=== PATIENT | female | born 1980 | race Caucasian/White ===

== ENCOUNTER 2018-06-03 13:19 | Emergency (ER) | payer MEDICAID ==
[~2018-06-03] VITALS: Ht 167.6 cm; Wt 107.5 kg
[2018-06-03 13:28] VITALS: BP 142/87
--- NOTE | 2018-06-03 13:39 | NUR ---
NICKIE HAN PERFORMING EKG IN TRIAGE AT THIS TIME.
--- NOTE | 2018-06-03 14:04 | NUR ---
Kerline ramirez in ED - 06/03/18 at 1425 by [facility] PT TO ER BED 11 CARRIED BY MOTHER
--- NOTE | 2018-06-03 14:25 | NUR ---
PT TO ER BED 9
[2018-06-03 15:38] VITALS: BP 126/72
== END 2018-06-03 15:35 | disposition home or self-care (01) ==
LOC: MED 13:19
DX: F15.23 Other stimulant dependence with withdrawal (principal); F41.9 Anxiety disorder, unspecified; Z90.49 Acquired absence of other specified parts of digestive tract; Z88.6 Allergy status to analgesic agent; Z88.5 Allergy status to narcotic agent; Z88.8 Allergy status to other drugs, medicaments and biological substances
CPT/HCPCS: 93005; 99283

== ENCOUNTER 2018-08-01 07:52 | Emergency (ER) | payer MEDICAID ==
[~2018-08-01] VITALS: Ht 157.5 cm; Wt 108.9 kg
[2018-08-01 07:59] VITALS: BP 134/86
--- NOTE | 2018-08-01 08:04 | NUR ---
PT AMBULATED TO BED 3
--- NOTE | 2018-08-01 08:05 | NUR ---
C/O NON RADIATING RLQ PAIN 09/17, THROBBING & INTERMITTENT STARTING LAST NIGHT. LBM 08/01/18, REGULAR PER PT. DENIED N/V/D/FEVER. PT REPORTS TAKING TYLENOL BUT HAD NO RELIEF. PT REPORTS URINARY FREQUENCY BUT DENIES DYSURIA. ABDOMEN SOFT/FLAT/TENDER TO PALPATION ON LRQ. BOWEL SOUNDS ACTIVE X4. BED IN LOW POSITION, SIDE RAIL UP X1.
--- NOTE | 2018-08-01 08:15 | NUR ---
ERMD AT BEDSIDE
[2018-08-01] MEDS ORDERED: KETOROLAC 30 MG/ML VIAL IM ONE (08:50)
[2018-08-01 10:34] VITALS: BP 130/88
[2018-08-01] MEDS ORDERED: fentaNYL 0.05 MG/ML VIAL NS ONE (11:15)
--- NOTE | 2018-08-01 11:35 | NUR ---
Kerline ramirez in [facility] - 08/01/18 at 1144 by [facility] PT LEFT TO CT
--- NOTE | 2018-08-01 11:38 | NUR ---
PT TAKEN TO CT VIA WHEELCHAIR
--- NOTE | 2018-08-01 12:55 | NUR ---
Patient discharged with v/s stable. Written and verbal after care instructions given and explained. Patient alert, oriented and verbalized understanding of instructions. Ambulatory with steady gait. All questions addressed prior to discharge. ID band removed. Patient advised to follow up with PMD. Rx of NARCO AND NAPROSYN given. Patient educated on indication of medication including possible reaction and side effects. Opportunity to ask questions provided and answered.
== END 2018-08-01 12:55 | disposition home or self-care (01) ==
LOC: MED 07:52
DX: R10.2 Pelvic and perineal pain (principal); K21.9 Gastro-esophageal reflux disease without esophagitis; I10 Essential (primary) hypertension; Z88.6 Allergy status to analgesic agent; Z88.5 Allergy status to narcotic agent
CPT/HCPCS: 74176; 76856; 81002; 81025; 93976; 96372; 99284; J1885; J3010; Q0092

== ENCOUNTER 2018-11-11 05:02 | Emergency (ER) | payer MEDICAID ==
[~2018-11-11] VITALS: Ht 157.5 cm; Wt 107.0 kg
[2018-11-11 05:08] VITALS: BP 153/93
[2018-11-11 06:17] VITALS: BP 125/49
== END 2018-11-11 06:16 | disposition home or self-care (01) ==
LOC: MED 05:02
DX: F41.9 Anxiety disorder, unspecified (principal); F32.9 Major depressive disorder, single episode, unspecified; I10 Essential (primary) hypertension; K21.9 Gastro-esophageal reflux disease without esophagitis; E11.9 Type 2 diabetes mellitus without complications; Z88.6 Allergy status to analgesic agent; Z87.42 Personal history of other diseases of the female genital tract
CPT/HCPCS: 93005; 99283

== ENCOUNTER 2019-04-25 12:26 | Emergency (ER) | payer MEDICAID ==
[~2019-04-25] VITALS: Ht 157.5 cm; Wt 107.5 kg
[2019-04-25 12:31] VITALS: BP 159/86
--- NOTE | 2019-04-25 12:32 | NUR ---
Patient ambulated to bed 5. RN evaluating patient at bedside.
--- NOTE | 2019-04-25 12:46 | NUR ---
Dr. Srivastava is evaluating the patient at bedside.
[2019-04-25] MEDS ORDERED: hydrOXYzine HCL 25 MG TAB PO ONE (12:50)
--- NOTE | 2019-04-25 12:50 | NUR ---
DR AMBRIZ EVALUATING PT AT BEDSIDE
--- NOTE | 2019-04-25 12:54 | NUR ---
states anxiety d/t "coronavirus"
--- NOTE | 2019-04-25 12:54 | NUR ---
38/F C/O feeling of anxiety and CP/palpitations last night that lasted 10 min. Took pill of Clonazepam and symptoms resolved. This morning pt woke up at 10am, with CP lasting minutes along with palpitations and SOB. Denies n/v, diaphoresis. Sternal chest pain, nonradiating. Chest pain constant, sharp. But states symptoms have decreased since checking into ER with "deep breathing". EKG done already. AOX4. VSS. Hx- Anxiety, HTN, pre-DM, ovarian cyst
[2019-04-25 13:46] LABS: BASOPHILS # (AUTO) 0.1 K/uL (0.00-0.22); BASOPHILS % (AUTO) 0.8 % (0.0-2.0); EOSINOPHILS # (AUTO) 0.1 K/uL (0-0.4); HEMATOCRIT 40.2 % (36-48); HEMOGLOBIN 13.4 g/dL (12.0-16.0); LYMPHOCYTES # (AUTO) 2.7 K/uL (2.5-16.5); LYMPHOCYTES % (AUTO) 35.8 % (20.5-51.1); MEAN CORPUSCULAR HEMOGLOBIN 29 pg (27-31); MEAN CORPUSCULAR HGB CONC 33 g/dL (33-37); MEAN CORPUSCULAR VOLUME 88.3 fL (80-94); MONOCYTES # (AUTO) 0.5 K/uL (0.8-1.0); MONOCYTES % (AUTO) 6.6 % (1.7-9.3); NEUTROPHILS # (AUTO) 4.2 K/uL (1.8-7.7); NEUTROPHILS % (AUTO) 55.8 % (42.2-75.2); PLATELET COUNT (AUTO) 239 K/uL (140-450); RED BLOOD CELL COUNT(AUTO) 4.56 MIL/uL (4.20-5.40); WHITE BLOOD COUNT (AUTO) 7.6 K/uL (4.8-10.8)
[2019-04-25 14:19] LABS: ANION GAP 15.1 (8-16); CARBON DIOXIDE 24.7 mmol/L (21-32); POTASSIUM 3.8 mmol/L (3.5-5.1)
[2019-04-25 14:25] LABS: ALBUMIN 3.4 g/dL (3.4-5.0); TOTAL BILIRUBIN 0.3 mg/dL (0.0-1.0)
--- NOTE | 2019-04-25 14:51 | NUR ---
Patient discharged with v/s stable. Written and verbal after care instructions given and explained. Patient alert, oriented and verbalized understanding of instructions. Ambulatory with steady gait. All questions addressed prior to discharge. ID band removed. Patient advised to follow up with PMD. Rx of HYDROXYZINE given. Patient educated on indication of medication including possible reaction and side effects. Opportunity to ask questions provided and answered.
[2019-04-25 15:11] VITALS: BP 127/88
== END 2019-04-25 14:51 | disposition home or self-care (01) ==
LOC: MED 12:26
DX: F41.9 Anxiety disorder, unspecified (principal); E11.9 Type 2 diabetes mellitus without complications; K21.9 Gastro-esophageal reflux disease without esophagitis; I10 Essential (primary) hypertension; Z88.1 Allergy status to other antibiotic agents; Z88.5 Allergy status to narcotic agent
CPT/HCPCS: 36415; 71045; 80053; 84484; 85025; 93005; 99285; Q0092

== ENCOUNTER 2021-01-20 07:53 | Emergency (ER) | payer MEDICAID ==
[~2021-01-20] VITALS: Ht 157.5 cm; Wt 118.8 kg
[2021-01-20 07:58] VITALS: BP 183/102
--- NOTE | 2021-01-20 08:05 | NUR ---
pt ambulated to bed 11
--- NOTE | 2021-01-20 08:09 | NUR ---
pt in bathroom for urine specimen
--- NOTE | 2021-01-20 08:14 | NUR ---
40 y/o f bib self from home, c/o back pain, increased frequency to urinate and dysuria for 1 week. denies hemturia, n/v/d. skin is pink/warm/dry; aaox4 with even and steady gait. lungs clear bl; hr even and regular; pt denies any fever, cough, sob, or cp at this time; pt states pain of 8/10 at this time; ermd made aware of pt status. bilateral cva tenderness. bowel sounds x4, normoactive, soft/non-tender/flat. pmh: htn, anxiety med: lisinopril (has not taken this morning) allergy: hydrocodone ("makes me breathe slow")
[2021-01-20 08:32] LABS: APPEARANCE,URINE CLOUDY (CLEAR); BILIRUBIN,URINE NEGATIVE (NEGATIVE); BLOOD, URINE 3+ (NEGATIVE); COLOR,URINE YELLOW (YELLOW); LEUKOCYTE ESTERASE ,URINE 2+ (NEGATIVE); NITRITE, URINE POSITIVE (NEGATIVE); UGLUCOSE NEGATIVE (NEGATIVE)
[2021-01-20 08:49] LABS: RBC,URINE 11-20 (MOD) /HPF (0-5)
[2021-01-20 08:50] LABS: WBC,URINE 80-100 /HPF (0-5)
[2021-01-20] MEDS ORDERED: PYR100 PO (09:18)
[2021-01-20] MEDS ORDERED: CEPH-588 PO (09:18)
[2021-01-20] MEDS: cephALEXin 500 MG CAP PO ONE (09:30)
[2021-01-20 09:35] VITALS: BP 183/102
--- NOTE | 2021-01-20 09:36 | NUR ---
Patient discharged with v/s stable. Written and verbal after care instructions ABOUT LUMBOSACRAL STRAIN AND UTI given and explained. Patient alert, oriented and verbalized understanding of instructions. Ambulatory with steady gait. All questions addressed prior to discharge. ID band removed. Patient advised to follow up with PMD. Rx of KEFLEX AND PYRIDIUM given. Patient educated on indication of medication including possible reaction and side effects. Opportunity to ask questions provided and answered.
== END 2021-01-20 09:35 | disposition home or self-care (01) ==
LOC: MED 07:53
DX: N39.0 Urinary tract infection, site not specified (principal); M54.50 Low back pain, unspecified; I10 Essential (primary) hypertension; K21.9 Gastro-esophageal reflux disease without esophagitis; Z79.899 Other long term (current) drug therapy; Z88.5 Allergy status to narcotic agent
CPT/HCPCS: 81001; 81025; 87086; 99283

== ENCOUNTER 2021-03-03 | Emergency (ER) | payer MEDICAID ==
[~2021-03-03] VITALS: Ht 157.5 cm; Wt 116.6 kg
[~2021-03-03] MED LIST: CEPH-588 PO; PYR100 PO
[2021-03-03 00:22] VITALS: BP 173/99
--- NOTE | 2021-03-03 00:28 | NUR ---
PATIENT TO LOBBY
[2021-03-03] MEDS ORDERED: LORazepam 2 MG/ML VIAL IM ONE (01:25)
[2021-03-03 01:42] VITALS: BP 173/99
--- NOTE | 2021-03-03 01:42 | NUR ---
Patient discharged with v/s stable. Written and verbal after care instructions given and explained BY DR. GARCIA Patient verbalized understanding. Ambulatory with steady gait. All questions addressed prior to discharge. Advised to follow up with PMD.
== END 2021-03-03 01:42 | disposition home or self-care (01) ==
LOC: MED
DX: F41.9 Anxiety disorder, unspecified (principal); E11.9 Type 2 diabetes mellitus without complications; I10 Essential (primary) hypertension; K21.9 Gastro-esophageal reflux disease without esophagitis; Z88.5 Allergy status to narcotic agent
CPT/HCPCS: 96372; 99283; J2060

== ENCOUNTER 2021-12-03 18:26 | Emergency (ER) | payer MEDICAID ==
[~2021-12-03] VITALS: Ht 157.5 cm; Wt 124.7 kg
[2021-12-03 18:32] VITALS: BP 174/100
--- NOTE | 2021-12-03 18:52 | NUR ---
41/F PRESENTS TO ED WITH C/O NOSEBLEED X30 MIN AGO. PATIENT REPORTS BLEEDING STARTED SUDDENLY AND BECAME SCARED, STATING "THERE WERE A LOT OF BLOOD CLOTS." NO ACTIVE BLEEDING UPON ARRIVAL, DENIES HEADACHE OR DIZZINESS, DENIES TRAUMA OR INJURY.
[2021-12-03] MEDS ORDERED: LORazepam 2 MG/ML VIAL IM ONE (19:00)
[2021-12-03] MEDS ORDERED: ATA25 PO (19:08)
[2021-12-03] MEDS ORDERED: PSEU120T22 PO (19:08)
--- NOTE | 2021-12-03 19:13 | NUR ---
Pt report given to SHAWNA ORANTES AND TREVOR ORANTES. Transfer of care at this time.
[2021-12-03 19:43] VITALS: BP 136/85
--- NOTE | 2021-12-03 19:43 | NUR ---
Patient discharged with v/s stable. Written and verbal after care instructions given and explained. Patient alert, oriented and verbalized understanding of instructions. Ambulatory with steady gait. All questions addressed prior to discharge. ID band removed. Patient advised to follow up with PMD. Rx of ATARAX AND SUDAFED given. Patient educated on indication of medication including possible reaction and side effects. Opportunity to ask questions provided and answered.
== END 2021-12-03 19:43 | disposition home or self-care (01) ==
LOC: MED 18:26
DX: R04.0 Epistaxis (principal); F41.9 Anxiety disorder, unspecified; R09.81 Nasal congestion; R00.2 Palpitations; K21.9 Gastro-esophageal reflux disease without esophagitis; I10 Essential (primary) hypertension; Z79.899 Other long term (current) drug therapy; Z88.5 Allergy status to narcotic agent
CPT/HCPCS: 82948; 96372; 99283; J2060